=== PATIENT | male | born 1985 | race Caucasian/White ===

== ENCOUNTER 2022-04-30 10:06 | Emergency (ER) | payer OTHER ==
[~2022-04-30] VITALS: Ht 167.6 cm; Wt 70.3 kg
[2022-04-30] MEDS ORDERED: EZALLOR SPRINKLE5 MG PO (10:18)
[2022-04-30] MEDS ORDERED: BISOPROLOL-HCT1 EACH PO (10:19)
== END 2022-04-30 12:42 | disposition home or self-care (01) ==
LOC: ER 10:06
DX: A90 Dengue fever [classical dengue] (principal); R50.9 Fever, unspecified; I10 Essential (primary) hypertension; Z20.822 Contact with and (suspected) exposure to COVID-19